=== PATIENT | male | born 1990 | race Caucasian/White ===

== ENCOUNTER 2018-03-23 14:53 | Emergency (ER) | payer SELFPAY ==
[~2018-03-23] VITALS: Ht 175.3 cm; Wt 79.0 kg
[2018-03-23 14:56] VITALS: BP 132/73
--- NOTE | 2018-03-23 15:07 | NUR ---
Pt in imaging.
--- NOTE | 2018-03-23 15:22 | NUR ---
Pt back to room from imaging.
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
--- NOTE | 2018-03-23 16:11 | NUR ---
Patient/Caregiver given discharge instructions and they have confirmed that they understand the instructions. Patient ambulatory with steady gait.
== END 2018-03-23 16:13 | disposition home or self-care (01) ==
LOC: ED 16:00
DX: S80.02XA Contusion of left knee, initial encounter (principal); S80.01XA Contusion of right knee, initial encounter; V43.63XA Car passenger injured in collision with pick-up truck in traffic accident, initial encounter; Y93.89 Activity, other specified; Y92.89 Other specified places as the place of occurrence of the external cause; Y99.8 Other external cause status
CPT/HCPCS: 99283